=== PATIENT | male | born 1950 | race Caucasian/White ===

== ENCOUNTER 2016-10-27 09:30 | Emergency (ER) | payer MEDICARE, OTHER ==
[~2016-10-27 09:30] MED LIST: DOXAZOSIN4 MG PO; INDERAL LA80 MG PO; LEVOTHYROXIN0.075 MG PO; MECLIZINE25 MG PO; MOBIC15 MG PO; SINGULAIR10 MG PO; ZYRTEC10 MG PO
[2016-10-27] MEDS ORDERED: LEXAPRO 10MG10 MG PO ×2 (11:15→14:12)
[2016-10-27] MEDS ORDERED: MECLIZINE PO (11:15)
[2016-10-27] MEDS ORDERED: KLONOPIN 0.5MG0.5 MG PO (11:16)
[2016-10-27] MEDS ORDERED: COZAAR25 M1 PO (14:05)
[2016-10-27] MEDS ORDERED: WELLBUTRIN XL150 M2 PO (14:07)
[2016-10-27] MEDS ORDERED: LAMICTAL200 M1 PO (14:07)
[2016-10-27] MEDS ORDERED: SUNMARK PAIN R325 MG PO (14:08)
[2016-10-27] MEDS ORDERED: ZYLOPRIM 100MG100 MG PO (14:09)
[2016-10-27] MEDS ORDERED: COLACE100 M1 PO (14:10)
[2016-10-27] MEDS ORDERED: ASPIRIN E.C. 8181 MG PO (14:10)
[2016-10-27] MEDS ORDERED: FUROSEMIDE40 MG PO (14:11)
[2016-10-27] MEDS ORDERED: LEXAPRO20 M1 PO (14:11)
[2016-10-27] MEDS ORDERED: HCTZ 25MG25 MG PO (14:12)
[2016-10-27] MEDS ORDERED: SINGULAIR PO (14:19)
[2016-10-27] MEDS ORDERED: INDERAL LA80 MG PO (14:19)
[2016-10-27 14:58] VITALS: BP 100/62
== END 2016-10-27 15:00 | disposition other institution (70) ==
LOC: ED 09:30
DX: K52.9 Noninfective gastroenteritis and colitis, unspecified (principal); E86.0 Dehydration; I95.1 Orthostatic hypotension; R63.8 Other symptoms and signs concerning food and fluid intake
CPT/HCPCS: J2405; J7030; J7120

== ENCOUNTER 2016-10-27 15:08 | Inpatient (IN) | payer MEDICARE, OTHER ==
[~2016-10-27 15:08] MED LIST changes: +ASPIRIN E.C. 8181 MG PO; +COLACE100 M1 PO; +COZAAR25 M1 PO; +FUROSEMIDE40 MG PO; +HCTZ 25MG25 MG PO; +KLONOPIN 0.5MG0.5 MG PO; +LAMICTAL200 M1 PO; +LEXAPRO 10MG10 MG PO; +LEXAPRO20 M1 PO; +MECLIZINE PO; +SINGULAIR PO; +SUNMARK PAIN R325 MG PO; +WELLBUTRIN XL150 M2 PO; +ZYLOPRIM 100MG100 MG PO
[2016-10-27 15:34] VITALS: BP 100/62
[2016-10-27 17:31] VITALS: BP 93/60
[2016-10-27 19:15] VITALS: BP 117/69
[2016-10-27 19:17] VITALS: BP 117/69
--- NOTE | 2016-10-27 22:30 | NUR ---
Report received from Joi MCGARRY. Patient resting supine in bed with bed alarm on. A/O x4. Denies pain. IV of LR infusing via pump at 125 ML/HR. Site patent to Mary BRADLEY. Denies wants or needs at this time. Instructed need to keep I&O. States has not voided or had stool since admission.
[2016-10-27 22:59] VITALS: BP 107/57
--- NOTE | 2016-10-27 23:43 | NUR ---
Awake, not able to sleep. Assessment not completed by previous nurse for shift so completed now. Denies nausea or upset stomach. Lungs CTA. BS + x4. No edema. No urge to void, no BM since hospitalization. Denies wants or needs.
--- NOTE | 2016-10-28 02:52 | NUR ---
Resting well with eyes closed. Denies pain. No BM's or voiding yet this shift. Aware of need for UA and stool samples when able to go. IVF infusing LR at 125 ML/HR. Site patent to Mary BRADLEY. Bed alarm on. Call light in reach.
[2016-10-28 03:20] VITALS: BP 101/59
--- NOTE | 2016-10-28 06:00 | NUR ---
Rested well all night. No pain. No stools or voiding. Scheduled Synthroid given. Lab in to draw ordered labs. States he may be able to go to [facility] after lab draw will call if he does.
--- NOTE | 2016-10-28 06:50 | NUR ---
Up to [facility] with assist had loose large dark green/black stool and voided 820 dark yellow urine. Samples collected and sent to lab.
[2016-10-28 06:53] VITALS: BP 106/59
--- NOTE | 2016-10-28 07:28 | NUR ---
Report to Shell MCGARRY
--- NOTE | 2016-10-28 07:43 | NUR ---
AWAKE AND SUPINE IN BED. REPORTS FEELING A LITTLE BETTER. HE DENIES PAIN. DENIES GI RUMBLING. DOES NOT HAVE AN APPETITE YET. VERBALIZES THAT HE IS SCARED TO EAT. LR INFUSING PER ORDERS AT 125ML/HR.
--- NOTE | 2016-10-28 08:40 | NUR ---
SITTING IN CHAIR. ATE MOST OF HIS BREAKFAST. TOLERATING WITHOUT GI DISCOMFORT. IS OPEN TO ADVANCING DIET FOR LUNCH.
[2016-10-28 11:17] VITALS: BP 115/65
--- NOTE | 2016-10-28 13:04 | NUR ---
REPORT PROVIDED TO SAMEER MCGARRY.
[2016-10-28 15:13] VITALS: BP 133/85
[2016-10-28 18:31] VITALS: BP 138/77
--- NOTE | 2016-10-28 19:00 | NUR ---
Report received from Tigist Lopez RN
--- NOTE | 2016-10-28 19:30 | NUR ---
Pt awake and a/o x 3. TV on. Pt talking on cell phone.
--- NOTE | 2016-10-28 20:40 | NUR ---
Awake resting in bed, a/o x 3. Denies pain of any kind. Denies nausea. Denies having any diarrhea. See shift assessment
--- NOTE | 2016-10-28 22:43 | NUR ---
Q hourly checks done. Has been resting in bed, eyes closed even none labored respirations. Pt currently awake, IV pump alarming. IV insertion site noted to have blood around it. IV site re-started in left hand. IV DC in Left AC. IV re-started per pt request. No swelling or bruising noted around Left AC IV insertion site. Pt denies having any needs or complaints
[2016-10-28 23:19] VITALS: BP 122/72
--- NOTE | 2016-10-29 00:27 | NUR ---
Resting in bed, eyes closed even none labored respirations. Pt has repositioned self.
--- NOTE | 2016-10-29 00:48 | NUR ---
Resting in bed with eyes closed, even none labored respirations. Opens eyes to any noise. Denies pain of any kind. Denies nausea, denies abd pain. Denies having any dirrhrea. New bag of LR hung. Infusing at 125mls/hour.
--- NOTE | 2016-10-29 02:30 | NUR ---
Resting in bed, eyes closed, even, none labored respirations. IV infusing at 125mls/hr. Bed alarm on. Q hourly checks done.
[2016-10-29 02:51] VITALS: BP 130/82
--- NOTE | 2016-10-29 06:16 | NUR ---
Pt has been resting in bed, eyes closed even, none labored respirations. Pt has repositioned self. Q hourly checks done, bed alarm on. At 0600 Pt used call light, ambulated to bathroom one person stand by assist, gait steady. Voided 700 mls of yellow urine. Denied pain, or nausea.
[2016-10-29 06:26] VITALS: BP 144/83
[2016-10-29 06:27] VITALS: BP 144/83
--- NOTE | 2016-10-29 07:29 | NUR ---
Report given to Wendy Huddleston RN
--- NOTE | 2016-10-29 09:00 | NUR ---
Pt sitting up in chair. IV fluids complete. Pt reports that he is feeling much better this AM, denies diarrhea, abdominal pain or feeling dizzy or light headed upon standing. Pt does have steady gait with ambulation. Per VO of Dr. Yi, d/c fluids at this time. Pt does still have positive orthostatics but is asymptomatic. Pt requests to go home today. Dr. Yi is aware of this request and agrees to review pt chart and make decision.
[2016-10-29 11:04] VITALS: BP 136/75
[2016-10-29 11:05] VITALS: BP 136/75
--- NOTE | 2016-10-29 13:59 | NUR ---
Pt reports understanding of d/c instructions. INT removed from L hand, complete/intact. Pt repeats back that he will f/u with Dr. Martinez regarding continued positive orthostatics. Pt is escorted out via ambulation to await spouse to pick him up. States that he "wants to sit in the sunshine."
== END 2016-10-29 13:59 | disposition home or self-care (01) | DRG 641 ==
LOC: MED/SURG 15:08
PROVIDERS: ADMIT Physician Assistant
DX: E86.0 Dehydration (principal); A08.4 Viral intestinal infection, unspecified; I95.1 Orthostatic hypotension; I10 Essential (primary) hypertension; N40.0 Benign prostatic hyperplasia without lower urinary tract symptoms; F32.9 Major depressive disorder, single episode, unspecified; E03.9 Hypothyroidism, unspecified; J45.909 Unspecified asthma, uncomplicated; G47.33 Obstructive sleep apnea (adult) (pediatric); M48.06 Spinal stenosis, lumbar region
CPT/HCPCS: J1650; J7120

== ENCOUNTER → 2017-08-14 | Day surgery (SDC) | payer MEDICARE, OTHER | LOC: MSO 06:24 → EDSTATUS 15:09 | DX: Z12.11 Encounter for screening for malignant neoplasm of colon (principal); Z80.0 Family history of malignant neoplasm of digestive organs; I10 Essential (primary) hypertension; J45.909 Unspecified asthma, uncomplicated; G47.33 Obstructive sleep apnea (adult) (pediatric); F32.9 Major depressive disorder, single episode, unspecified; E07.9 Disorder of thyroid, unspecified; N40.0 Benign prostatic hyperplasia without lower urinary tract symptoms; E66.01 Morbid (severe) obesity due to excess calories; Z88.8 Allergy status to other drugs, medicaments and biological substances | CPT/HCPCS: 00810; J2704; J7120 ==

== ENCOUNTER → 2018-08-17 | Outpatient (CLI) | payer MEDICARE, OTHER | LOC: CARDREHAB 08:26 | DX: R06.02 Shortness of breath (principal); Z86.79 Personal history of other diseases of the circulatory system; Z82.49 Family history of ischemic heart disease and other diseases of the circulatory system | CPT/HCPCS: A9500 ==

== ENCOUNTER → 2018-08-23 | Outpatient (CLI) | payer MEDICARE, OTHER | LOC: VAS 15:33 → RAD 16:00 | DX: R06.02 Shortness of breath (principal) ==

== ENCOUNTER → 2018-09-07 | Outpatient (CLI) | payer MEDICARE, OTHER | LOC: RAD 10:49 | DX: N28.1 Cyst of kidney, acquired (principal); K76.0 Fatty (change of) liver, not elsewhere classified ==

== ENCOUNTER → 2020-05-04 | Outpatient (CLI) | payer MEDICARE, OTHER | LOC: LAB 12:55 | DX: Z20.828 Contact with and (suspected) exposure to other viral communicable diseases (principal) ==

== ENCOUNTER → 2021-02-23 | Outpatient (CLI) | payer MEDICARE, OTHER ==
[2021-02-23 08:33] LABS: BASO # 0.02 (0.02-0.10); EOS # 0.16 (0.04-0.40); EOS % 2.8 % (0.0-4.0); HEMATOCRIT 50.6 % (42.0-52.0); HEMOGLOBIN 16.6 g/dL (13.5-18.0); LYMPH# 1.13 (1.50-4.00); MEAN CELL VOLUME 86 fl (78-100); MEAN CORPUSCULAR HEMOGLOBIN 28 pg (27-31); MEAN CORPUSCULAR HGB CONC 33 g/dL (33-37); MEAN PLATELET VOLUME 9.7 fl (7.4-10.4); MONO # 0.57 (0.20-0.80); NEU # 3.87 (1.40-6.50); PLATELET COUNT 205 K/mm3 (130-400); RED BLOOD COUNT 5.91 M/mm3 (4.20-5.60); RED CELL DISTRIBUTION WIDTH 14.2 % (11.5-14.5); WHITE BLOOD COUNT 5.8 K/mm3 (4.8-10.8)
[2021-02-23 08:38] LABS: ALBUMIN 3.9 g/dL (3.4-4.8); POTASSIUM 4.3 mmol/L (3.5-5.1)
[2021-02-23 08:39] LABS: CALCIUM 8.9 mg/dL (8.3-10.5)
[2021-02-23 08:41] LABS: TOTAL PROTEIN 7.2 g/dL (6.2-8.1)
[2021-02-23 08:42] LABS: TOTAL BILIRUBIN 0.6 mg/dL (0.2-1.2)
[2021-02-23 08:49] LABS: MAGNESIUM 1.85 mg/dL (1.60-2.60)
[2021-02-23 11:32] LABS: ERYTHROCYTE SEDIMENTATION RATE 13 mm/hr (0-20)
[2021-02-23 23:29] LABS: TESTOSTERONE 249 ng/dL (221-716)
== END ==
LOC: LAB 07:59
PROVIDERS: Internal Medicine
DX: Z12.11 Encounter for screening for malignant neoplasm of colon (principal); Z12.5 Encounter for screening for malignant neoplasm of prostate; E03.4 Atrophy of thyroid (acquired); I10 Essential (primary) hypertension; E23.0 Hypopituitarism; K90.9 Intestinal malabsorption, unspecified; E78.2 Mixed hyperlipidemia

== ENCOUNTER → 2022-05-05 | Outpatient (CLI) | payer MEDICARE, OTHER ==
[2022-05-05 08:54] LABS: BASO # 0.01 K/mm3 (0.02-0.10); EOS # 0.09 K/mm3 (0.04-0.40); EOS % 1.5 % (0.0-4.0); HEMATOCRIT 50.5 % (42.0-52.0); HEMOGLOBIN 16.5 g/dL (13.5-18.0); LYMPH# 1.04 K/mm3 (1.50-4.00); MEAN CELL VOLUME 86 fl (78-100); MEAN CORPUSCULAR HEMOGLOBIN 28 pg (27-31); MEAN CORPUSCULAR HGB CONC 33 g/dL (33-37); MONO # 0.58 K/mm3 (0.20-0.80); NEU # 4.18 K/mm3 (1.40-6.50); PLATELET COUNT 201 K/mm3 (130-400); RED BLOOD COUNT 5.85 M/mm3 (4.20-5.60); WHITE BLOOD COUNT 5.9 K/mm3 (4.8-10.8)
[2022-05-05 08:59] LABS: POTASSIUM 4.1 mmol/L (3.5-5.1)
[2022-05-05 09:01] LABS: CALCIUM 9.5 mg/dL (8.3-10.5)
[2022-05-05 09:02] LABS: TOTAL PROTEIN 7.4 g/dL (6.2-8.1)
[2022-05-05 09:04] LABS: TOTAL BILIRUBIN 0.9 mg/dL (0.2-1.2)
[2022-05-05 09:09] LABS: MAGNESIUM 1.84 mg/dL (1.60-2.60)
[2022-05-05 09:59] LABS: ERYTHROCYTE SEDIMENTATION RATE 25 mm/hr (0-20)
[2022-05-05 22:58] LABS: TESTOSTERONE 286 ng/dL (221-716)
== END ==
LOC: LAB 08:37
PROVIDERS: Internal Medicine
DX: Z12.5 Encounter for screening for malignant neoplasm of prostate (principal); Z12.11 Encounter for screening for malignant neoplasm of colon; I10 Essential (primary) hypertension; K90.9 Intestinal malabsorption, unspecified; E78.2 Mixed hyperlipidemia; E03.4 Atrophy of thyroid (acquired); F03.90 Unspecified dementia, unspecified severity, without behavioral disturbance, psychotic disturbance, mood disturbance, and anxiety; E23.0 Hypopituitarism

== ENCOUNTER → 2022-11-01 | Outpatient (CLI) | payer MEDICARE, OTHER ==
[2022-11-01 09:13] LABS: BASO # 0.02 K/mm3 (0.02-0.10); EOS # 0.09 K/mm3 (0.04-0.40); EOS % 1.6 % (0.0-4.0); HEMATOCRIT 50.8 % (42.0-52.0); HEMOGLOBIN 16.7 g/dL (13.5-18.0); LYMPH# 1.08 K/mm3 (1.50-4.00); MEAN CELL VOLUME 86 fl (78-100); MEAN CORPUSCULAR HEMOGLOBIN 28 pg (27-31); MEAN CORPUSCULAR HGB CONC 33 g/dL (33-37); MONO # 0.59 K/mm3 (0.20-0.80); NEU # 3.86 K/mm3 (1.40-6.50); PLATELET COUNT 218 K/mm3 (130-400); RED BLOOD COUNT 5.89 M/mm3 (4.20-5.60); RED CELL DISTRIBUTION WIDTH 14.5 % (11.5-14.5); WHITE BLOOD COUNT 5.7 K/mm3 (4.8-10.8)
[2022-11-01 09:17] LABS: POTASSIUM 4.3 mmol/L (3.5-5.1)
[2022-11-01 09:18] LABS: ALBUMIN 4.1 g/dL (3.4-4.8)
[2022-11-01 09:19] LABS: CALCIUM 9.9 mg/dL (8.3-10.5)
[2022-11-01 09:20] LABS: TOTAL PROTEIN 7.3 g/dL (6.2-8.1)
[2022-11-01 09:22] LABS: TOTAL BILIRUBIN 0.7 mg/dL (0.2-1.2)
[2022-11-01 09:27] LABS: MAGNESIUM 2.1 mg/dL (1.60-2.60)
[2022-11-01 09:47] LABS: URINE APPEARANCE HAZY; URINE COLOR DK YELLOW
[2022-11-01 09:48] LABS: URINE BILIRUBIN NEGATIVE (NEGATIVE); URINE BLOOD TRACE (NEGATIVE); URINE GLUCOSE NEGATIVE (NEGATIVE); URINE KETONE NEGATIVE (NEGATIVE); URINE LEUKOCYTE ESTERASE NEGATIVE (NEGATIVE); URINE MUCUS PRESENT (NOT PRESENT); URINE NITRATE NEGATIVE (NEGATIVE); URINE PROTEIN(semi-quant) TRACE (NEGATIVE); URINE UROBILINOGEN NORMAL (NORMAL); URINE WBC 0-1 /hpf (0-3)
[2022-11-01 11:36] LABS: ERYTHROCYTE SEDIMENTATION RATE 5 mm/hr (0-20)
[2022-11-01 22:58] LABS: TESTOSTERONE 392 ng/dL (221-716)
== END ==
LOC: LAB 08:39
PROVIDERS: Internal Medicine
DX: I10 Essential (primary) hypertension (principal); E03.4 Atrophy of thyroid (acquired); K90.9 Intestinal malabsorption, unspecified; E23.0 Hypopituitarism; E78.2 Mixed hyperlipidemia; R73.03 Prediabetes

== ENCOUNTER → 2023-08-28 | Day surgery (SDC) | payer MEDICARE, OTHER | END | disposition home or self-care (01) | LOC: MSO 08:20 | DX: Z12.11 Encounter for screening for malignant neoplasm of colon (principal); D12.3 Benign neoplasm of transverse colon | CPT/HCPCS: 00811; J2704; J7120 ==

== ENCOUNTER → 2023-12-06 | Outpatient (CLI) | payer MEDICARE, OTHER ==
[2023-12-06 09:42] LABS: BASO # 0.01 K/mm3 (0.02-0.10); EOS # 0.19 K/mm3 (0.04-0.40); EOS % 3.2 % (0.0-4.0); HEMATOCRIT 54.2 % (42.0-52.0); LYMPH# 1.23 K/mm3 (1.50-4.00); MEAN CELL VOLUME 89 fl (78-100); MEAN CORPUSCULAR HEMOGLOBIN 28 pg (27-31); MEAN CORPUSCULAR HGB CONC 31 g/dL (33-37); MEAN PLATELET VOLUME 10.7 fl (7.4-10.4); MONO # 0.51 K/mm3 (0.20-0.80); NEU # 3.95 K/mm3 (1.40-6.50); PLATELET COUNT 179 K/mm3 (130-400); RED BLOOD COUNT 6.11 M/mm3 (4.20-5.60); WHITE BLOOD COUNT 5.9 K/mm3 (4.8-10.8)
[2023-12-06 09:44] LABS: ALBUMIN 4.1 g/dL (3.4-4.8)
[2023-12-06 09:45] LABS: CALCIUM 9.5 mg/dL (8.3-10.5)
[2023-12-06 09:47] LABS: TOTAL PROTEIN 7.4 g/dL (6.2-8.1)
[2023-12-06 09:49] LABS: TOTAL BILIRUBIN 0.5 mg/dL (0.2-1.2)
[2023-12-06 09:53] LABS: MAGNESIUM 1.76 mg/dL (1.60-2.60)
[2023-12-06 22:04] LABS: HEPATITIS C VIRUS ANTIBODY Negative (Negative)
[2023-12-07 13:51] LABS: TESTOSTERONE 356 ng/dL (221-716)
== END ==
LOC: LAB 09:13
PROVIDERS: Internal Medicine
DX: Z12.5 Encounter for screening for malignant neoplasm of prostate (principal); Z12.11 Encounter for screening for malignant neoplasm of colon; Z11.59 Encounter for screening for other viral diseases; I10 Essential (primary) hypertension; E23.0 Hypopituitarism; E78.2 Mixed hyperlipidemia; R73.9 Hyperglycemia, unspecified

== ENCOUNTER → 2024-04-03 | Day surgery (SDC) | payer MEDICARE ==
[~2024-04-03] MED LIST changes: +Balanced Salt Ophth Irrig 15 ML BOTTLE *BULK OP SCH; +Cyclopentolate 2% Ophth Soln 1 BOTTLE *BULK OP SCH; +EPINEPHrine 1 MG/ML (1:1000) 1 ML AMP IR SCH; +Ketorolac 0.5% Ophth Soln 5 ML Bottle *BULK OP SCH; +Phenylephrine 10% Ophth Soln 5 ML BOTTLE *BULK OP SCH; +Polymyxin B Sulfate/Trimethoprim Ophth Soln 10 ML BOTTLE *BULK OP SCH; +Povidone Iodine 5% Ophth Soln 30 ML BOTTLE *BULK OP SCH; +Proparacaine 0.5% Ophth Soln 15 ML BOTTLE *BULK OP SCH; +Tropicamide 1% Ophth Soln Bottle *BULK OP SCH; +fentaNYL 100 MCG/2 ML VIAL ONE
== END | disposition home or self-care (01) ==
LOC: MSO 09:42
DX: H25.11 Age-related nuclear cataract, right eye (principal)
CPT/HCPCS: 00142; J0171; J3010; V2632

== ENCOUNTER → 2024-06-06 | Outpatient (CLI) | payer MEDICARE ==
[~2024-06-06] MED LIST changes: -Balanced Salt Ophth Irrig 15 ML BOTTLE *BULK OP SCH; -Cyclopentolate 2% Ophth Soln 1 BOTTLE *BULK OP SCH; -EPINEPHrine 1 MG/ML (1:1000) 1 ML AMP IR SCH; -Ketorolac 0.5% Ophth Soln 5 ML Bottle *BULK OP SCH; -Phenylephrine 10% Ophth Soln 5 ML BOTTLE *BULK OP SCH; -Polymyxin B Sulfate/Trimethoprim Ophth Soln 10 ML BOTTLE *BULK OP SCH; -Povidone Iodine 5% Ophth Soln 30 ML BOTTLE *BULK OP SCH; -Proparacaine 0.5% Ophth Soln 15 ML BOTTLE *BULK OP SCH; -Tropicamide 1% Ophth Soln Bottle *BULK OP SCH; -fentaNYL 100 MCG/2 ML VIAL ONE
[2024-06-06 08:41] LABS: BASO # 0.01 K/mm3 (0.02-0.10); EOS # 0.11 K/mm3 (0.04-0.40); EOS % 2.4 % (0.0-4.0); HEMATOCRIT 48.2 % (42.0-52.0); HEMOGLOBIN 15.7 g/dL (13.5-18.0); LYMPH# 0.94 K/mm3 (1.50-4.00); MEAN CELL VOLUME 87 fl (78-100); MEAN CORPUSCULAR HEMOGLOBIN 28 pg (27-31); MEAN CORPUSCULAR HGB CONC 33 g/dL (33-37); MEAN PLATELET VOLUME 9.9 fl (7.4-10.4); MONO # 0.63 K/mm3 (0.20-0.80); NEU # 2.94 K/mm3 (1.40-6.50); PLATELET COUNT 186 K/mm3 (130-400); RED BLOOD COUNT 5.57 M/mm3 (4.20-5.60); RED CELL DISTRIBUTION WIDTH 14.9 % (11.5-14.5); WHITE BLOOD COUNT 4.6 K/mm3 (4.8-10.8)
[2024-06-06 08:54] LABS: ALBUMIN 4.1 g/dL (3.4-4.8)
[2024-06-06 08:56] LABS: CALCIUM 9.5 mg/dL (8.3-10.5)
[2024-06-06 08:57] LABS: TOTAL PROTEIN 6.9 g/dL (6.2-8.1)
[2024-06-06 08:59] LABS: TOTAL BILIRUBIN 1.1 mg/dL (0.2-1.2)
[2024-06-06 09:04] LABS: MAGNESIUM 1.76 mg/dL (1.60-2.60)
== END ==
LOC: LAB 08:07
PROVIDERS: Internal Medicine
DX: E03.4 Atrophy of thyroid (acquired) (principal); I10 Essential (primary) hypertension